=== PATIENT | male | born 1980 | race Caucasian/White ===

== ENCOUNTER 2021-09-21 15:53 | Emergency (ER) | payer OTHER ==
[2021-09-21 16:41] LABS: HEMOGLOBIN 15.3 gm/dl (14.0-17.5); RED BLOOD COUNT 4.83 M/UL (4.20-5.50); WHITE BLOOD COUNT 15.3 K/UL (4.5-11.0)
[2021-09-21 17:03] LABS: BUN/CREATININE RATIO 22 (0-10)
[2021-09-21] MEDS ORDERED: IMITREX50 MG PO (17:59)
[2021-09-21] MEDS ORDERED: ONDANSETRON ODT4 MG SL (17:59)
== END 2021-09-21 18:30 | disposition home or self-care (01) ==
LOC: ER1 15:53
PROVIDERS: Physician Assistant Medical
DX: J06.9 Acute upper respiratory infection, unspecified (principal); R51.9 Headache, unspecified; F17.200 Nicotine dependence, unspecified, uncomplicated
CPT/HCPCS: 70450; 80053; 85025; 96374; 96375; 99284; J1200; J1885; J2405; J2765; J7030

== ENCOUNTER 2021-09-26 09:22 | Observation (INO) | payer OTHER ==
[~2021-09-26] VITALS: Ht 190.5 cm; Wt 131.5 kg
[~2021-09-26 09:22] MED LIST: IMITREX50 MG PO; ONDANSETRON ODT4 MG SL
[2021-09-26 10:05] LABS: HEMOGLOBIN 14.4 gm/dl (14.0-17.5); RED BLOOD COUNT 4.52 M/UL (4.20-5.50); WHITE BLOOD COUNT 8.4 K/UL (4.5-11.0)
[2021-09-26 10:37] LABS: BUN/CREATININE RATIO 24 (0-10)
[2021-09-26] MEDS ORDERED: IBUPROFEN600 MG PO (13:59)
[2021-09-26] MEDS ORDERED: XYZAL5 MG PO (13:59)
[2021-09-27 07:00] LABS: HEMOGLOBIN 14.3 gm/dl (14.0-17.5); RED BLOOD COUNT 4.48 M/UL (4.20-5.50); WHITE BLOOD COUNT 9.8 K/UL (4.5-11.0)
[2021-09-27 09:09] LABS: BUN/CREATININE RATIO 25 (0-10)
[2021-09-27] MEDS ORDERED: TOPAMAX 25 MG T25 MG PO (13:14)
[2021-09-27] MEDS ORDERED: ECOTRIN81 MG PO (13:14)
== END 2021-09-27 16:53 | disposition home or self-care (01) ==
LOC: ER1 09:22 → CDU 11:13 → MED SURG 4 15:03
PROVIDERS: Emergency Medicine; Physician Assistant Medical; ADMIT Internal Medicine
DX: G45.9 Transient cerebral ischemic attack, unspecified (principal); F17.210 Nicotine dependence, cigarettes, uncomplicated; Z88.5 Allergy status to narcotic agent; Z79.899 Other long term (current) drug therapy; Z20.822 Contact with and (suspected) exposure to COVID-19
CPT/HCPCS: 70450; 70496; 70498; 70551; 71045; 80048; 80053; 80061; 80307; 82550; 82553; 83735; 83874; 84484; 85025; 85027; 85610; 85730; 93005; G0378; Q9967; U0002